=== PATIENT | male | born 1990 | race Caucasian/White ===

== ENCOUNTER 2018-08-15 22:56 | Emergency (ER) | payer MEDICAID ==
[~2018-08-15] VITALS: Ht 175.3 cm; Wt 72.6 kg
[2018-08-15] MEDS ORDERED: HYDROCODONE/APAP 5/325MG 1 EACH TABLET PO ONE (23:30)
[2018-08-15] MEDS ORDERED: HYDROCODONE/APAP 5/325MG 1 EACH TABLET ONE (23:33)
--- NOTE | 2018-08-16 00:19 | NUR ---
ASSUMED CARE OF PT.
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
--- NOTE | 2018-08-16 01:52 | NUR ---
Patient discharged to home in stable condition. Written and verbal after care instructions given. Patient verbalizes understanding of instruction. PT REC'D A HOMELESS PACKET, FOOD, AND A TAP CARD. PT AMBULATED TO THE [facility], WITH A STEADY GAIT, TO WAIT FOR THE BUSES TO RESUME RUNNING LATER THIS AM. VSS. NAD NOTED.
[2018-08-16 01:54] VITALS: BP 124/78
== END 2018-08-16 01:57 | disposition home or self-care (01) ==
LOC: ER 23:15
DX: S06.0X0A Concussion without loss of consciousness, initial encounter (principal); S80.02XA Contusion of left knee, initial encounter; S80.01XA Contusion of right knee, initial encounter; S09.8XXA Other specified injuries of head, initial encounter; F12.20 Cannabis dependence, uncomplicated; Z59.0 Homelessness; Y08.89XA Assault by other specified means, initial encounter; Y93.89 Activity, other specified; Y92.89 Other specified places as the place of occurrence of the external cause; Y99.8 Other external cause status
CPT/HCPCS: 73564-TC